=== PATIENT | female | born 1990 | race Caucasian/White ===

== ENCOUNTER 2022-07-12 04:26 | Emergency (ER) | payer SELFPAY ==
[~2022-07-12] VITALS: Ht 149.9 cm; Wt 54.9 kg
[2022-07-12 05:46] VITALS: BP 116/75
[2022-07-12] MEDS ORDERED: ONDA4TAB5 PO (06:11)
--- NOTE | 2022-07-12 06:25 | NUR ---
COVID SWAB AND INFLUENZA SWAB SENT TO LAB
[2022-07-12] MEDS ORDERED: ONDANSETRON 4 MG TAB.RAPDIS SL ONE (06:30)
== END 2022-07-12 06:28 | disposition home or self-care (01) ==
LOC: ER 04:26
DX: R50.9 Fever, unspecified (principal); R11.2 Nausea with vomiting, unspecified; Z20.822 Contact with and (suspected) exposure to COVID-19
CPT/HCPCS: 99283; 87426; 87804; C9803